=== PATIENT | female | born 1980 | race Caucasian/White ===

== ENCOUNTER 2016-04-25 20:11 | Emergency (ER) | payer OTHER ==
[2016-04-25 20:25] VITALS: BP 126/80
[2016-04-25] MEDS ORDERED: Ketorolac INJ* 60 MG/2 ML VIAL IM ONE (20:45)
[2016-04-25] MEDS ORDERED: Ciproflox/Dexameth OTIC.SUSP* 7.5 ML BTL LEFT EAR ONE (20:45)
--- NOTE | 2016-04-25 22:02 | ED ---
Stephanie Rodríguez Claudia, scribed for Milan Sparks MD on 04/25/16 at 2042 . Throat Pain/Nasal Congestion - HPI Summary HPI Summary: 36 year old female presents to the ED with left ear pain. Pt notes throbbing/ dull ache sudden onset .Pt denies any sore throat, fever or chills, or nasal congestion. She notes that she was seen at [facility] but has not been able to find relief and the pain persists. - History of Current Complaint Chief Complaint: EDEarPain Time Seen by Provider: 04/25/16 20:31 Hx Obtained From: Patient Onset/Duration: Sudden Onset - 04/23/16, Still Present - Allergies/Home Medications Allergies/Adverse Reactions: Allergies Allergy/AdvReac Type Severity Reaction Status Date / Time Cephalexin [From Keflex] Allergy Severe seizure Verified 02/20/12 08:58 Codeine Allergy Mild Rash Verified 02/20/12 08:53 PMH/Surg Hx/FS Hx/Imm Hx Previously Healthy: Yes Endocrine/Hematology History: Denies: Hx Diabetes Psychiatric History: Reports: Hx Anxiety Infectious Disease History: No Infectious Disease History: Reports: Hx Shingles - RESOLVED 2 WKS AGO Denies: Traveled Outside the [place] in Last 30 Days - Family History Family History: No FHx of Breast Cancer - Social History Occupation: Employed Full-time Lives: Alone Alcohol Use: Rare Substance Use Type: Reports: None Hx Tobacco Use: No Review of Systems Negative: Fever, Chills Eyes: Negative Positive: Ear Ache. Negative: Sore Throat, Nasal Discharge Cardiovascular: Negative Respiratory: Negative Gastrointestinal: Negative Genitourinary: Negative Musculoskeletal: Negative Skin: Negative Neurological: Negative Psychological: Normal All Other Systems Reviewed And Are Negative: Yes Physical Exam - Summary Physical Exam Summary: Vital signs: Reviewed Gen.: Patient is a well-developed and nourished male in no acute distress. Patient is lying comfortably on the stretcher. Head: Normacephalic and atraumatic Eyes: PERRLA, EOMI x2. Ears: Right ear canal and TM WNL. and Left positive erythema in the ear canal Nose and mouth: Neck: Supple, no lymphadenopathy, no JVD Lungs: CTA B/L CVS: S1 & S2 present. No murmurs appreciated. Triage Information Reviewed: Yes Vital Signs On Initial Exam: Initial Vitals Temp Pulse Resp BP Pulse Ox 98.8 F 67 16 126/80 100 04/25/16 20:22 04/25/16 20:22 04/25/16 20:22 04/25/16 20:22 04/25/16 20:22 Vital Signs Reviewed: Yes Diagnostics - Vital Signs Vital Signs Temp Pulse Resp BP Pulse Ox 04/25/16 20:22 98.8 F 67 16 126/80 100 - Laboratory Lab Statement: Any lab studies that have been ordered have been reviewed, and results considered in the medical decision making process. EENT Course/Dx - Course Assessment/Plan: 36 year old with c/c of left ear pain. Pt has been having pain for last few days. PE displays otitis externa. Pt was given ciproflox and ketorolac for pain. Pt will be d/c home and follow-up with PCP. I discussed all my findings and test results with the patient. Patient understands and agrees. Patient was instructed to return to the emergency room immediately if any of the symptoms return or worsens. Patient understands and agrees. Plan of care was discussed with the patient and patient understands and agrees with the plan of care. All questions were answered at patient satisfaction. There were no further complaints or concerns. Patient was instructed to follow up with primary care physician within 3 to 5 days. Patient is hemodynamically stable. Patient is alert and oriented x 3. No acute neurological deficits. - Diagnoses Provider Diagnoses: Otitis externa Discharge - Discharge Plan Condition: Stable Disposition: HOME Patient Education Materials: Otitis Externa (ED) Referrals: Mirna Hoffman [employer] [Primary Care Provider] - 2 Days (Please follow-up ) The documentation as recorded by the Stephanie abad Claudia accurately reflects the service I personally performed and the decisions made by me, Milan Sparks MD.
== END 2016-04-25 21:23 | disposition home or self-care (01) ==
LOC: ED 20:11
DX: H60.92 Unspecified otitis externa, left ear (principal); Z88.5 Allergy status to narcotic agent
CPT/HCPCS: 99282; A9270-GY; J1885

== ENCOUNTER 2016-04-26 14:27 | Emergency (ER) | payer OTHER ==
[2016-04-26 14:45] VITALS: BP 121/81
--- NOTE | 2016-04-26 15:30 | ED ---
Throat Pain/Nasal Congestion - History of Current Complaint Chief Complaint: EDEarPain Time Seen by Provider: 04/26/16 15:06 Hx Obtained From: Patient Onset/Duration: Gradual Onset - has had L ear pain over past week, was seen at [facility] and given no meds (not OM) was seen here yesterday and dx with OE- started ear gtts but pain is no better. remembers having L sided nasal leigh last week, but doesn't "really feel sick" Severity: Moderate - Allergies/Home Medications Allergies/Adverse Reactions: Allergies Allergy/AdvReac Type Severity Reaction Status Date / Time Cephalexin [From Keflex] Allergy Severe seizure Verified 04/26/16 14:45 Codeine Allergy Mild Rash Verified 04/26/16 14:45 PMH/Surg Hx/FS Hx/Imm Hx Previously Healthy: Yes Endocrine/Hematology History: Denies: Hx Diabetes Cardiovascular History: Denies: Hx Hypertension Respiratory History: Denies: Hx Asthma Sensory History: Denies: Hx Hearing Problem Neurological History: Denies: Hx Migraine Psychiatric History: Reports: Hx Anxiety Infectious Disease History: No Infectious Disease History: Reports: Hx Shingles - RESOLVED 2 WKS AGO Denies: Traveled Outside the [place] in Last 30 Days - Family History Known Family History: Positive: None Family History: No FHx of Breast Cancer - Social History Occupation: Employed Full-time - assistant secretary Lives: With Family Alcohol Use: Rare Substance Use Type: Reports: None Hx Tobacco Use: No Smoking Status (MU): Unknown if Ever Smoked Review of Systems Constitutional: Negative Negative: Fever, Chills Eyes: Negative Positive: Ear Ache. Negative: Sore Throat Cardiovascular: Negative Respiratory: Negative Gastrointestinal: Negative Skin: Negative Neurological: Negative Psychological: Normal All Other Systems Reviewed And Are Negative: Yes Physical Exam Triage Information Reviewed: Yes Vital Signs On Initial Exam: Initial Vitals Temp Pulse Resp BP Pulse Ox 98.1 F 62 16 121/81 100 04/26/16 14:30 04/26/16 14:30 04/26/16 14:30 04/26/16 14:30 04/26/16 14:30 Vital Signs Reviewed: Yes Appearance: Positive: Well-Appearing, No Pain Distress, Well-Nourished Skin: Positive: Warm, Skin Color Reflects Adequate Perfusion, Dry Head/Face: Positive: Normal Head/Face Inspection Eyes: Positive: Normal ENT: Positive: Normal ENT inspection, TM dull, Other - thick yellow drainage L OP no mastoid pain on palp/percussion, no facial swelling or redness. ear canals free from discharge/swelling/redness no LAD, pain with Palp L eustachian area inferior to L ear.. Negative: Nasal drainage, TM bulging, TM red Neck: Positive: Supple, Nontender, No Lymphadenopathy Respiratory/Lung Sounds: Positive: Clear to Auscultation Cardiovascular: Positive: Normal Neurological: Positive: Normal, Alert, Oriented to Person Place, Time Psychiatric: Positive: Normal Diagnostics - Vital Signs Vital Signs Temp Pulse Resp BP Pulse Ox 04/26/16 14:30 98.1 F 62 16 121/81 100 - Laboratory Lab Statement: Any lab studies that have been ordered have been reviewed, and results considered in the medical decision making process. EENT Course/Dx - Course Course Of Treatment: iStop Reference #: [id number] - Differential Diagnoses Differential Diagnoses: Cerumen Impaction, Foreign Body, Otitis Externa, Otitis Media, Sinusitis, TMJ Syndrome, URI/Bronchitis - Diagnoses Provider Diagnoses: Sinusitis, Eustachian tube dysfunction Discharge - Discharge Plan Condition: Stable Disposition: HOME Prescriptions: Azithromycin TAB* [Zithromax TAB (Z-TOMAS)*] 0 mg PO .Z-TOMAS INSTRUCTIONS #6 tab Patient Education Materials: Sinusitis (ED), Eustachian Tube Dysfunction (GEN) Referrals: Mirna Hoffman [employer] COORDINATOR [Primary Care Provider] - 2 Days (recheck) Additional Instructions: take antibiotic as directed stop ear drops use sudafed (from behind the counter) as directed return if problems worsen
[2016-04-26] MEDS ORDERED: Ketorolac INJ* 60 MG/2 ML VIAL IM ONE (15:45)
== END 2016-04-26 16:11 | disposition home or self-care (01) ==
LOC: ED 14:27
DX: H69.90 Unspecified Eustachian tube disorder, unspecified ear (principal); J32.9 Chronic sinusitis, unspecified; H92.02 Otalgia, left ear
CPT/HCPCS: 96372; 99282; J1885

== ENCOUNTER 2016-04-29 10:37 | Emergency (ER) | payer OTHER ==
[2016-04-29 11:12] VITALS: BP 117/80
--- NOTE | 2016-05-05 10:44 | ED ---
Throat Pain/Nasal Congestion - HPI Summary HPI Summary: Pt here w/ persistent Lt side otalgia and face pain. This started last week and she was seen here in ED. Dx'd as OE and provided with cipro otic drops. Pt has no relief with this so returned and was told had a sinus infection - started on Zpak w/o relief. Was seen at [address] [place] [address] as well and given toradol IM w/ some relief but only briefly. Her PCP rx'd oral toradol a few days later w/o relief. She has a h/o TMJ and so was also provided w/ flexeril w/o relief - makes her sleepy and does not want anymore of this as she has small children at home and worries she will sleep through their needs. She describes her pain as an intermittent, sharp 9/10 pain that is exacerbated and alleviated by nothing. She also states the side of her face becomes painful w/ cold air exposure. H/o shingles and the sensation is somewhat similar - burning, nerve pain. Denies fever, chills, rhinorrhea, otorrhea, eye irritation or visual change, ST, neck pain, sinus pain/pressure, dental pain. She has not had any trauma here. Does report 2 new spots on her Lt cheek which she thought were pimples - has tried to rupture them w/o much success - now they are red and irritated - not sure if they were blistered initially? No other areas of skin abnormalities along this side of face/scalp. Pt was sent here today by PCP as she reported having Lt sided facial numbness and worsening of pain. Denies drooling, trouble swallowing , facial asymmetry, weakness, slurred speech, dizziness, tinnitus, nausea, vomiting. Pt has not had imaging and PCP's is concerned something more serious could be at hand. States she planned to order an MRI until pt reported facial numbness - hence referral here today. - History of Current Complaint Chief Complaint: EDGeneral Time Seen by Provider: 04/29/16 15:00 Hx Obtained From: Patient, Family/Assistant Scientist - PCP - Allergies/Home Medications Allergies/Adverse Reactions: Allergies Allergy/AdvReac Type Severity Reaction Status Date / Time Cephalexin [From Keflex] Allergy Severe seizure Verified 05/04/16 15:05 Codeine Allergy Mild Rash Verified 05/04/16 15:05 PMH/Surg Hx/FS Hx/Imm Hx Previously Healthy: Yes - prior to ear/face sx, yes Endocrine/Hematology History: Denies: Hx Anticoagulant Therapy, Hx Blood Disorders, Hx Diabetes, Hx Thyroid Disease, Hx Anemia, Autoimmune Disease Cardiovascular History: Denies: Hx Hypertension Respiratory History: Denies: Hx Asthma Musculoskeletal History: Reports: Other Musculoskeletal History - TMJ Sensory History: Denies: Hx Hearing Problem Neurological History: Denies: Hx CVA, Hx Headaches, Hx Migraine, Hx Spinal Cord Injury Psychiatric History: Reports: Hx Anxiety Infectious Disease History: No Infectious Disease History: Reports: Hx Shingles - Rib area Denies: Traveled Outside the [place] in Last 30 Days - Family History Known Family History: Positive: None - Social History Lives: With Family Alcohol Use: Rare Hx Substance Use: No Substance Use Type: Reports: None Hx Tobacco Use: No Smoking Status (MU): Unknown if Ever Smoked Review of Systems Negative: Fever, Chills, Fatigue Negative: Photophobia, Blurred Vision, Diplopia, Drainage, Erythema Positive: Ear Ache - see HPI. Negative: Epistaxis, Dental Pain, Sore Throat, Nasal Discharge Negative: Palpitations, Chest Pain Negative: Shortness Of Breath, Cough Negative: Abdominal Pain, Vomiting, Diarrhea, Nausea Positive: no symptoms reported Negative: Arthralgia, Myalgia, Decreased ROM, Edema Skin: Other - see HPI Neurological: Other - see HPI Negative: Headache Psychological: Normal - concerned All Other Systems Reviewed And Are Negative: Yes Physical Exam Triage Information Reviewed: Yes Vital Signs On Initial Exam: Initial Vitals Temp Pulse Resp BP Pulse Ox 99.2 F 74 15 117/80 100 04/29/16 11:02 04/29/16 11:02 04/29/16 11:02 04/29/16 11:02 04/29/16 11:02 Vital Signs Reviewed: Yes Appearance: Positive: Well-Appearing, No Pain Distress, Well-Nourished Skin: Positive: Warm, Dry - 2 small erythematous papules over Lt cheek - no pustule, no vesicle, no drainage; no other areas of skin abnormalities along this dermatome however scalp is somewhat tender here, especially with moving hair Head/Face: Positive: Other - see above Eyes: Positive: Normal, EOMI, JR, Conjunctiva Clear. Negative: Conjunctiva Inflammed, Discharge ENT: Positive: Normal ENT inspection, Hearing grossly normal, Pharynx normal - no lesions, Pharyngeal erythema, TMs normal - no lesions, no d/c. Negative: Nasal congestion, Nasal drainage - no lesions, TM bulging, TM dull, TM red, Tonsillar swelling, Tonsillar exudate, Trismus Dental: Negative: Percussion Tenderness @, Gross Decay/Caries @, Dental Fracture @ Neck: Positive: Supple, Nontender, No Lymphadenopathy Respiratory/Lung Sounds: Positive: Clear to Auscultation, Breath Sounds Present. Negative: Rales, Rhonchi, Stridor, Wheezes Cardiovascular: Positive: Normal, RRR, Pulses are Symmetrical in both Upper and Lower Extremities, S1, S2. Negative: Murmur, Rub, Leg Edema Left, Leg Edema Right Abdomen Description: Positive: Nontender, Soft Bowel Sounds: Positive: Present Musculoskeletal: Positive: Normal, Strength/ROM Intact - NOTE: jaw depression and elevation w/o pain/difficulty - tracking well; masseter, temporalis and buccinator mm are NTTP Neurological: Positive: Normal, Sensory/Motor Intact, Alert, Oriented to Person Place, Time, CN Intact II-III Psychiatric: Positive: Normal - calm, collected and presents HPI concisely - mild anxiety from concern of no relief and no dx as of yet - Gavin Coma Scale Coma Scale Total: 15 Diagnostics - Vital Signs Vital Signs Temp Pulse Resp BP Pulse Ox 04/29/16 11:02 99.2 F 74 15 117/80 100 - Laboratory Lab Statement: Any lab studies that have been ordered have been reviewed, and results considered in the medical decision making process. EENT Course/Dx - Course Course Of Treatment: After speaking with pt, pt's PCP (Cortes) and radiologist ( Jessica), it is felt that the imaging of choice here will be an MRI. Pt does not appear to have life threatening pathology today (ie. CVA, etc), so will be d /c'd w/ a tentative dx of HZV and medications to tx this as she has some sx of HZV (ie. lesions along cheek, nerve pain along face and scalp, relief w/ NSAID and h/o HZV). However she will have close f/u w/ her PCP this week and an MRI to further asses for intracranial pathology. Another dx in the differential is trigeminal neuralgia. Pt agrees w/ plan and will return if danger s/sx present. - Diagnoses Provider Diagnoses: Neuralgic facial pain - Provider Notifications Discussed Care of Patient with: Karnow. Lopez Discharge - Discharge Plan Condition: Stable Disposition: HOME Prescriptions: Gabapentin CAP(*) [Neurontin 300 CAP(*)] 300 mg PO TID #30 cap ValACYclovir (*) [Valtrex 1 GM(*)] 1 gm PO TID #21 tab predniSONE TAB* [Deltasone TAB*] 20 mg PO TID #15 tab Patient Education Materials: Shingles (ED), Trigeminal Neuralgia (ED), Paresthesia (ED) Referrals: Ivy Kolb DO [Doctor of Osteopathy] - Additional Instructions: The specific cause of your facial pain has not been identified today however there is high clinical suspicion that you may have shingles or possibly trigeminal neuralgia. Medications have been sent to your pharmacy to provide relief until you can have an MRI through your PCP's office. Your PCP, Dr. Kolb , is aware and agrees with plan. Her office will call you with details about imaging. A steroid medication was started today - if this provides relief, a longer course should be implemented through your PCP's office - follow-up before you finish medication in the event more medication needs to be ordered. If this does not provide relief, it may not be necessary to continue. 5 days is maximum to take this medication without needing a taper down dose. If this regimen does not work, other options are available. Follow-up with your PCP. *If you develop ocular pain, weakness/paralysis of face, fever, chills, chest pain, shortness of breath, numbness/tingling/weakness in extremities or severe headache, return to ED Addendum entered and electronically signed by Jossie Scanlon PA 05/05/16 11:21: Physical Exam Triage Information Reviewed: Yes Vital Signs On Initial Exam: Initial Vitals Temp Pulse Resp BP Pulse Ox 99.2 F 74 15 117/80 100 04/29/16 11:02 04/29/16 11:02 04/29/16 11:02 04/29/16 11:02 04/29/16 11:02 Vital Signs Reviewed: Yes Appearance: Positive: Well-Appearing, No Pain Distress, Well-Nourished Skin: Positive: Warm, Dry - 2 small erythematous papules over Lt cheek - no pustule, no vesicle, no drainage; no other areas of skin abnormalities along this dermatome however scalp is somewhat tender here, especially with moving hair Head/Face: Positive: Other - sinuses, mastoid p and parotd gland NTTP - see above for more details. Negative: TMJ Tenderness Eyes: Positive: Normal, EOMI, JR, Conjunctiva Clear. Negative: Conjunctiva Inflammed, Discharge ENT: Positive: Normal ENT inspection, Hearing grossly normal, Pharynx normal - no lesions, mucosa moist, Pharyngeal erythema, TMs normal - no lesions, no d/c. Negative: Nasal congestion, Nasal drainage - no lesions, TM bulging, TM dull, TM red, Tonsillar swelling, Tonsillar exudate, Trismus Dental: Negative: Percussion Tenderness @, Gross Decay/Caries @, Dental Fracture @ Neck: Positive: Supple, Nontender, No Lymphadenopathy Respiratory/Lung Sounds: Positive: Clear to Auscultation, Breath Sounds Present. Negative: Rales, Rhonchi, Stridor, Wheezes Cardiovascular: Positive: Normal, RRR, Pulses are Symmetrical in both Upper and Lower Extremities, S1, S2. Negative: Murmur, Rub, Leg Edema Left, Leg Edema Right Abdomen Description: Positive: Nontender, Soft Bowel Sounds: Positive: Present Musculoskeletal: Positive: Normal, Strength/ROM Intact - NOTE: jaw depression and elevation w/o pain/difficulty - tracking well; masseter, temporalis and buccinator mm are NTTP Neurological: Positive: Normal, Sensory/Motor Intact, Alert, Oriented to Person Place, Time, CN Intact II-III Psychiatric: Positive: Normal - calm, collected and presents HPI concisely - mild anxiety from concern of no relief and no dx as of yet - Gavin Coma Scale Coma Scale Total: 15
== END 2016-04-29 16:03 | disposition home or self-care (01) ==
LOC: ED 10:37
DX: M79.2 Neuralgia and neuritis, unspecified (principal); Z86.19 Personal history of other infectious and parasitic diseases; R51 Headache; H92.09 Otalgia, unspecified ear; R20.9 Unspecified disturbances of skin sensation
CPT/HCPCS: 99283

== ENCOUNTER 2017-03-15 09:03 | Emergency (ER) | payer BC, OTHER ==
[2017-03-15] MEDS ORDERED: methylPREDNISolone 125 MG* 2 ML VIAL IV ONE (09:44)
[2017-03-15] MEDS ORDERED: NS 0.9% 1000 ML* 1,000 ML IV ONE ×2 (09:44→09:48)
[2017-03-15] MEDS ORDERED: Clindamycin 300 MG IVPREMIX(* 300 MG in PREMIX* 1 ML IV ONE (09:44)
[2017-03-15] MEDS ORDERED: Ondansetron INJ* 2 MG/ML VIAL IV ONE (09:44)
[2017-03-15] MEDS ORDERED: Ketorolac INJ* 30 MG/ML 1 ML VIAL IV PUSH ONE (09:46)
[2017-03-15] MEDS ORDERED: PREMIX* 0 ML ONE (10:01)
[2017-03-15 10:08] LABS: Hematocrit 39 % (35-47); Hemoglobin 13.4 g/dl (12.0-16.0); Mean Corpuscular HGB Conc 34 g/dl (31-36); Mean Corpuscular Hemoglobin 30 pg (27-31); Mean Corpuscular Volume 88 fL (80-97); Mean Platelet Volume 9 um3 (7.4-10.4); Red Blood Count 4.43 10^6/ul (4.0-5.4); Red Cell Distribution Width 13 % (10.5-15); White Blood Count 10.3 10^3/ul (3.5-10.8)
--- NOTE | 2017-03-15 10:26 | ED ---
Throat Pain/Nasal Congestion - HPI Summary HPI Summary: Patient is a 37yo otherwise heathy F who presents to the ED with difficulty swallowing, anterior neck pain, pain with swallowing, change of voice, feeling of tightness/swelling in the throat and fever highest at 102 x 4 days. She was seen at [facility] twice and was given amoxicillin on the 2nd visit. Strep negative, mono negative. She arrives today with worsening odynophagia and dysphagia and continues to have a temperature despite OTC medications. Denies myalgias. Denies V/C/D although notes to some nausea. Denies ear pain, posterior neck pain or stiffness, photophobia. She notes to a 2/10 MACE this morning which has now improved. + weakness and fatigue. Denies sick contacts or travel. Denies history of strep or mono. Denies flu shot. No drooling, wheezing or hoarseness, but slightly muffled voice. - History of Current Complaint Chief Complaint: EDFever Time Seen by Provider: 03/15/17 09:20 Hx Obtained From: Patient Onset/Duration: Sudden Onset Severity: Severe Associated Signs And Symptoms: Positive: Dysphagia, FB Sensation - Allergies/Home Medications Allergies/Adverse Reactions: Allergies Allergy/AdvReac Type Severity Reaction Status Date / Time Cephalexin [From Keflex] Allergy Severe seizure Verified 05/06/16 15:23 Codeine Allergy Mild Rash Verified 05/06/16 15:23 PMH/Surg Hx/FS Hx/Imm Hx Previously Healthy: Yes Endocrine/Hematology History: Denies: Hx Anticoagulant Therapy, Hx Blood Disorders, Hx Diabetes, Hx Thyroid Disease, Hx Anemia Cardiovascular History: Denies: Hx Hypertension, Hx Pacemaker/ICD Respiratory History: Denies: Hx Asthma History: Denies: Hx Renal Disease Musculoskeletal History: Reports: Other Musculoskeletal History - TMJ Sensory History: Denies: Hx Hearing Aid, Hx Hearing Problem Neurological History: Denies: Hx CVA, Hx Headaches, Hx Migraine, Hx Spinal Cord Injury Psychiatric History: Reports: Hx Anxiety Denies: Hx Panic Disorder - Surgical History Surgery Procedure, Year, and Place: D & C - Immunization History Hx Pertussis Vaccination: No Immunizations Up to Date: Unable to Obtain/Confirm Infectious Disease History: No Infectious Disease History: Reports: Hx Shingles - Rib area Denies: Traveled Outside the [place] in Last 30 Days - Family History Known Family History: Positive: None Family History: No FHx of Breast Cancer - Social History Occupation: Employed Full-time Lives: With Family Alcohol Use: Rare Hx Substance Use: No Substance Use Type: Reports: None Hx Tobacco Use: No Smoking Status (MU): Unknown if Ever Smoked Review of Systems Positive: Fever, Chills, Skin Diaphoresis Eyes: Negative Negative: Blurred Vision, Diplopia, Drainage Positive: Sore Throat. Negative: Epistaxis, Dental Pain, Ear Ache, Nasal Discharge Negative: Palpitations, Chest Pain Negative: Shortness Of Breath, Cough Positive: Nausea. Negative: Vomiting, Diarrhea Genitourinary: Negative Positive: no symptoms reported, see HPI Musculoskeletal: Negative Neurological: Negative All Other Systems Reviewed And Are Negative: Yes Physical Exam Triage Information Reviewed: Yes Vital Signs On Initial Exam: Initial Vitals Temp Pulse Resp BP Pulse Ox 101.9 F 130 20 117/68 98 03/15/17 09:17 03/15/17 09:17 03/15/17 09:17 03/15/17 09:17 03/15/17 09:17 Vital Signs Reviewed: Yes Appearance: Positive: Well-Appearing, Well-Nourished Skin: Positive: Warm, Skin Color Reflects Adequate Perfusion Head/Face: Positive: Normal Head/Face Inspection Eyes: Positive: EOMI, JR, Conjunctiva Clear ENT: Positive: Pharyngeal erythema, Tonsillar swelling, Tonsillar exudate, Hoarse voice, Uvula midline, Other - muffled voice Neck: Positive: Tenderness @ - cervical and anterior LN, Enlarged Nodes @ - Left anterior Respiratory/Lung Sounds: Positive: Breath Sounds Present Cardiovascular: Positive: RRR, Pulses are Symmetrical in both Upper and Lower Extremities. Negative: Leg Edema Left, Leg Edema Right Musculoskeletal: Positive: Normal, Strength/ROM Intact Neurological: Positive: Sensory/Motor Intact, Alert, Oriented to Person Place, Time, Speech Normal Psychiatric: Positive: Normal Diagnostics - Vital Signs Vital Signs Temp Pulse Resp BP Pulse Ox 03/15/17 09:17 101.9 F 130 20 117/68 98 - Laboratory Lab Results: Lab Results 03/15/17 Range/Units 09:55 WBC 10.3 (3.5-10.8) 10^3/ul RBC 4.43 (4.0-5.4) 10^6/ul Hgb 13.4 (12.0-16.0) g/dl Hct 39 (35-47) % MCV 88 (80-97) fL MCH 30 (27-31) pg MCHC 34 (31-36) g/dl RDW 13 (10.5-15) % Plt Count 179 (150-450) 10^3/ul MPV 9 (7.4-10.4) um3 Neut % (Auto) 84.4 H (38-83) % Lymph % (Auto) 4.7 L (25-47) % [place] % (Auto) 10.5 H (1-9) % Eos % (Auto) 0 (0-6) % Baso % (Auto) 0.4 (0-2) % Absolute Neuts (auto) 8.7 H (1.5-7.7) 10^3/ul Absolute Lymphs (auto) 0.5 L (1.0-4.8) 10^3/ul Absolute Monos (auto) 1.1 H (0-0.8) 10^3/ul Absolute Eos (auto) 0 (0-0.6) 10^3/ul Absolute Basos (auto) 0 (0-0.2) 10^3/ul Absolute Nucleated RBC 0.01 10^3/ul Nucleated RBC % 0.1 Monoscreen Pending Result Diagrams: 03/15/17 09:55 03/15/17 09:55 Lab Statement: Any lab studies that have been ordered have been reviewed, and results considered in the medical decision making process. EENT Course/Dx - Course Course Of Treatment: During the course of treatment, patient is given 2L fluids , zofran, clindamycin IV and solumedrol. Tylenol 650mg. CT neck : IMPRESSION: 1. Thickened oropharyngeal and nasopharyngeal mucosal space without evidence for a soft. tissue plane abscess collection or abnormal soft tissue gas. 2. Bilateral level 2 lymphadenopathy. Tonsillitis without strep or mono. Labs WNL. She is given 7 days clindamycin; prednisone 40mg; and tramadol for pain. EENT follow up. - Differential Diagnoses Differential Diagnoses: Peritonsillar Ulcer, Pharyngitis - Diagnoses Provider Diagnoses: Tonsillitis Discharge - Discharge Plan Condition: Stable Disposition: HOME Prescriptions: Clindamycin Cap(NF) [Clindamycin Cap 300 mg Cap(NF)] 300 mg PO Q6H #28 cap predniSONE TAB* [Deltasone TAB*] 40 mg PO DAILY #10 tab MDD 2 traMADol TAB* [Ultram*] 50 mg PO Q12H PRN #6 tab MDD 2 PRN Reason: Pain Patient Education Materials: Tonsillitis (ED) Forms: *Work Release Referrals: Mirna Hoffman NP [Primary Care Provider] - Frederick Nix MD [Medical Doctor] - Additional Instructions: I believe you have a bacterial tonsillitis Please take prednisone 40mg daily IN THE MORNING for 5 days Clindamycin 4 times daily for 7 days (next dose is at 5pm this evening) Tylenol 650mg and ibuprofen 600mg intermittently throughout the day ( approximately every 4 hours you should be taking either one) Take on opposite schedule of the other Tramadol twice daily only as needed for pain Out of work x 2 days I have given you a referral for EENT if any symptoms continue or worsen If you develop difficulty swallowing or breathing, return to ED immediately
[2017-03-15 10:29] LABS: BUN/Creatinine Ratio 12.6 (8-20); C Reactive Protein 170.48 mg/L (< 5.00); Calcium 9.1 mg/dL (8.6-10.3); EGFR African American 94.7 (>60); EGFR Non-African American 73.7 (>60); Globulin 3.3 g/dL (2-4); Potassium 3.3 mmol/L (3.5-5.0); Total Bilirubin 0.7 mg/dL (0.2-1.0); Total Protein 7.3 g/dL (6.4-8.9)
[2017-03-15 10:32] LABS: Manual Entry Verification JEA0012; Mono Internal Control QC Line Present
[2017-03-15] MEDS ORDERED: Iohexol 300* (CONTRAST) 10 ML SDV IV ONE (10:59)
--- NOTE | 2017-03-15 11:42 | RAD ---
INDICATION: Sore and swollen throat, decreased appetite, bodyaches. Unable to swallow or eat. Fever since . On amoxicillin. Question retropharyngeal versus peritonsillar abscess. COMPARISON: No relevant prior exams available on the [facility] for comparison. TECHNIQUE: Multidetector CT images skull base to lung apices with 50 mL Omnipaque 300 IV contrast. Multiplanar reformation. REPORT: Mild to moderately thickened oropharyngeal and RIGHT greater than LEFT nasopharyngeal mucosa. No soft tissue abscess collection evident. No abnormal soft tissue gas evident. Symmetric unremarkable parapharyngeal fat. Unremarkable submandibular and parotid glands. 1.0 cm and 1.2 cm short axis RIGHT level 2, and 1.5 cm short axis LEFT level 2 enlarged lymph nodes. Unremarkable thyroid gland. Unremarkable orbital contents. Patent bilateral internal jugular veins. Unremarkable epiglottis, vallecula and piriform recesses, larynx, and visualized subglottic trachea. No inflammatory change evident at the visualized lung apices. Grossly clear paranasal sinuses and mastoid air spaces. No suspicious osseous lesions evident. IMPRESSION: 1. Thickened oropharyngeal and nasopharyngeal mucosal space without evidence for a soft tissue plane abscess collection or abnormal soft tissue gas. 2. Bilateral level 2 lymphadenopathy.
[2017-03-15 13:26] LABS: Urine Bacteria Absent (Absent); Urine Bilirubin Negative (Negative); Urine Glucose Negative (Negative); Urine Nitrite Negative (Negative)
[2017-03-15 14:42] VITALS: BP 98/60
== END 2017-03-15 14:48 | disposition home or self-care (01) ==
LOC: ED 09:03
DX: J03.90 Acute tonsillitis, unspecified (principal)
CPT/HCPCS: 36415; 70491; 80053; 81003; 81015; 83605; 85025; 86140; 86308; 87040; 87070; 87502; 87651; 96360; 96374; J1885; J2405; J2930; Q9967

== ENCOUNTER 2017-03-17 13:05 | Observation (INO) | payer BC ==
[2017-03-17] MEDS ORDERED: NS 0.9% 1000 ML* 1,000 ML IV ONE (13:52)
[2017-03-17] MEDS ORDERED: methylPREDNISolone 125 MG* 2 ML VIAL IV ONE (14:06)
[2017-03-17 14:21] LABS: Hematocrit 36 % (35-47); Hemoglobin 12.2 g/dl (12.0-16.0); Mean Corpuscular HGB Conc 34 g/dl (31-36); Mean Corpuscular Hemoglobin 30 pg (27-31); Mean Corpuscular Volume 89 fL (80-97); Mean Platelet Volume 8 um3 (7.4-10.4); Red Blood Count 4.02 10^6/ul (4.0-5.4); Red Cell Distribution Width 13 % (10.5-15); White Blood Count 7.4 10^3/ul (3.5-10.8)
[2017-03-17] MEDS ORDERED: Morphine INJ* 4 MG/ML 1 ML CARPUJECT IV ONE (14:21)
[2017-03-17 14:37] LABS: Albumin 3.7 g/dL (3.2-5.2); BUN/Creatinine Ratio 19.7 (8-20); C Reactive Protein 67.79 mg/L (< 5.00); EGFR African American 119.8 (>60); EGFR Non-African American 93.1 (>60); Globulin 3.1 g/dL (2-4); Potassium 3.6 mmol/L (3.5-5.0); Total Bilirubin 0.3 mg/dL (0.2-1.0); Total Protein 6.8 g/dL (6.4-8.9)
[2017-03-17 14:39] LABS: Mono Internal Control QC Line Present
--- NOTE | 2017-03-17 15:45 | ED ---
Throat Pain/Nasal Congestion - HPI Summary HPI Summary: Patient presents to the ED from PCP with difficulty swallowing her secretions. She was here 2 days ago and note is below: Patient is a 37yo otherwise heathy F who presents to the ED with difficulty swallowing, anterior neck pain, pain with swallowing, change of voice, feeling of tightness/swelling in the throat and fever highest at 102 x 4 days. She was seen at [facility] twice and was given amoxicillin on the 2nd visit. Strep negative, mono negative. She arrives today with worsening odynophagia and dysphagia and continues to have a temperature despite OTC medications. Denies myalgias. Denies V/C/D although notes to some nausea. Denies ear pain, posterior neck pain or stiffness, photophobia. She notes to a 2/10 MACE this morning which has now improved. + weakness and fatigue. Denies sick contacts or travel. Denies history of strep or mono. Denies flu shot. No drooling, wheezing or hoarseness, but slightly muffled voice. She continues to have difficulty swallowing and pain with swallowing. She was given clindamycin and steroids which has not improved her symptoms x 2 days. Denies fever x 2 days since taking the antibiotic. Still having sweats and chills. PCP called Dr. Nix who suggested she come to the ED for a direct admit. Taking no other medication, allergy to keflex and codeine. Morphine given previously with no reaction. - History of Current Complaint Chief Complaint: EDThroatPain Time Seen by Provider: 03/17/17 13:36 Hx Obtained From: Patient, Family/Conductor/Engineer Onset/Duration: Sudden Onset, Lasting Days, Still Present Severity: Worse Since: - today Associated Signs And Symptoms: Positive: Drooling, Hoarseness - Epiglottits Risk Factors Epiglottis Risk Factors: Muffled Voice - Allergies/Home Medications Allergies/Adverse Reactions: Allergies Allergy/AdvReac Type Severity Reaction Status Date / Time Cephalexin [From Keflex] Allergy Severe seizure Verified 05/06/16 15:23 Codeine Allergy Mild Rash Verified 05/06/16 15:23 Home Medications: Home Medications Ibuprofen TAB* [Advil TAB*] 600 mg PO Q8H PRN 03/17/17 [History Confirmed ] PMH/Surg Hx/FS Hx/Imm Hx Previously Healthy: Yes Endocrine/Hematology History: Denies: Hx Anticoagulant Therapy, Hx Blood Disorders, Hx Diabetes, Hx Thyroid Disease, Hx Anemia Cardiovascular History: Denies: Hx Hypertension, Hx Pacemaker/ICD Respiratory History: Denies: Hx Asthma History: Denies: Hx Renal Disease Musculoskeletal History: Reports: Other Musculoskeletal History - TMJ Sensory History: Denies: Hx Hearing Aid, Hx Hearing Problem Neurological History: Denies: Hx CVA, Hx Headaches, Hx Migraine, Hx Spinal Cord Injury Psychiatric History: Reports: Hx Anxiety Denies: Hx Panic Disorder - Surgical History Surgery Procedure, Year, and Place: D & C - Immunization History Hx Pertussis Vaccination: No Immunizations Up to Date: Unable to Obtain/Confirm Infectious Disease History: No Infectious Disease History: Reports: Hx Shingles - Rib area Denies: Traveled Outside the [place] in Last 30 Days - Family History Known Family History: Positive: None Family History: No FHx of Breast Cancer - Social History Occupation: Employed Full-time Lives: With Family Alcohol Use: Rare Hx Substance Use: No Substance Use Type: Reports: None Hx Tobacco Use: No Smoking Status (MU): Never Smoked Tobacco Review of Systems Positive: Fatigue Eyes: Negative Positive: Sore Throat, Other - odynophagia/dysphagia/drooling Cardiovascular: Negative Respiratory: Negative Positive: no symptoms reported, see HPI Musculoskeletal: Negative Neurological: Negative All Other Systems Reviewed And Are Negative: Yes Physical Exam Triage Information Reviewed: Yes Vital Signs On Initial Exam: Initial Vitals Temp Pulse Resp BP Pulse Ox 97.9 F 86 18 115/82 99 03/17/17 13:09 03/17/17 13:09 03/17/17 13:09 03/17/17 13:09 03/17/17 13:09 Appearance: Positive: Ill-Appearing Skin: Positive: Skin Color Reflects Adequate Perfusion ENT: Positive: Pharyngeal erythema, Other - pharyngeal monte with exudates bilaterally, enlarged, postpharyngeal edematous - tonsils +3 Neck: Positive: Tenderness @ - anterior/posterior cervical LAD Respiratory/Lung Sounds: Positive: Breath Sounds Present Cardiovascular: Positive: Normal, Pulses are Symmetrical in both Upper and Lower Extremities Musculoskeletal: Positive: Strength/ROM Intact Neurological: Positive: Normal Gait Psychiatric: Positive: Normal, Affect/Mood Appropriate AVPU Assessment: Alert - Gavin Coma Scale Coma Scale Total: 15 Diagnostics - Vital Signs Vital Signs Temp Pulse Resp BP Pulse Ox 03/17/17 15:30 72 97/65 100 03/17/17 15:00 66 112/69 100 03/17/17 14:42 81 113/72 99 03/17/17 14:41 73 99 03/17/17 14:36 20 03/17/17 13:09 97.9 F 86 18 115/82 99 - Laboratory Lab Results: Lab Results 03/17/17 03/17/17 03/17/17 Range/Units 14:10 14:10 14:10 WBC 7.4 (3.5-10.8) 10^3/ul RBC 4.02 (4.0-5.4) 10^6/ul Hgb 12.2 (12.0-16.0) g/dl Hct 36 (35-47) % MCV 89 (80-97) fL MCH 30 (27-31) pg MCHC 34 (31-36) g/dl RDW 13 (10.5-15) % Plt Count 185 (150-450) 10^3/ul MPV 8 (7.4-10.4) um3 Neut % (Auto) 85.8 H (38-83) % Lymph % (Auto) 7.8 L (25-47) % [place] % (Auto) 6.1 (1-9) % Eos % (Auto) 0.1 (0-6) % Baso % (Auto) 0.2 (0-2) % Absolute Neuts (auto) 6.4 (1.5-7.7) 10^3/ul Absolute Lymphs (auto) 0.6 L (1.0-4.8) 10^3/ul Absolute Monos (auto) 0.5 (0-0.8) 10^3/ul Absolute Eos (auto) 0 (0-0.6) 10^3/ul Absolute Basos (auto) 0 (0-0.2) 10^3/ul Absolute Nucleated RBC 0 10^3/ul Nucleated RBC % 0 Sodium 139 (133-145) mmol/L Potassium 3.6 (3.5-5.0) mmol/L Chloride 103 (101-111) mmol/L Carbon Dioxide 29 (22-32) mmol/L Anion Gap 7 (2-11) mmol/L BUN 14 (6-24) mg/dL Creatinine 0.71 (0.51-0.95) mg/dL Est GFR ( Amer) 119.8 (>60) Est GFR (Non-Af Amer) 93.1 (>60) BUN/Creatinine Ratio 19.7 (8-20) Glucose 116 H (70-100) mg/dL Lactic Acid 0.8 (0.5-2.0) mmol/L Calcium 9.0 (8.6-10.3) mg/dL Total Bilirubin 0.30 (0.2-1.0) mg/dL AST 11 L (13-39) U/L ALT 9 (7-52) U/L Alkaline Phosphatase 38 (34-104) U/L C-Reactive Protein 67.79 H (< 5.00) mg/L Total Protein 6.8 (6.4-8.9) g/dL Albumin 3.7 (3.2-5.2) g/dL Globulin 3.1 (2-4) g/dL Albumin/Globulin Ratio 1.2 (1-3) Monoscreen Negative (Negative) Result Diagrams: 03/17/17 14:10 03/17/17 14:10 Lab Statement: Any lab studies that have been ordered have been reviewed, and results considered in the medical decision making process. EENT Course/Dx - Course Course Of Treatment: Patient arrives from PCP with Dr. Nxi consult who states she needs to come to ED for admission d./t inability to swallow her secretions. She continues to have this x 1 week with no improvement, but now worsening. She continues to have difficulty swallowing and pain with swallowing. She was given clindamycin and steroids which has not improved her symptoms x 2 days. Denies fever x 2 days since taking the antibiotic. Still having sweats and chills. PCP called Dr. Nix who suggested she come to the ED for a direct admit. However, hospitalist did not receive admission. Labs obtained, solumedrol given. Morphine 4mg given. Spoke with Dr. Basurto who agrees to admit patient. VS stable. [place] negative - sent EBV. Throat culture pending. pharyngeal monte with exudates bilaterally, enlarged, postpharyngeal edematous - tonsils +3 - Differential Diagnoses Differential Diagnoses: Tonsilitis - Diagnoses Provider Diagnoses: Dysphagia, Inability to swallow - Provider Notifications Discussed Care Of Patient With: Boyd Basurto - Agrees to accept patient Instructed by Provider To: Admit As Inpatient Discharge - Discharge Plan Condition: Stable Disposition: ADMITTED TO [facility] Referrals: Ivy Kolb DO [Primary Care Provider] -
[2017-03-17] MEDS ORDERED: Acetaminophen ADULT LIQ* 650 MG/20.3 ML UDC PO PRN (16:27)
[2017-03-17] MEDS ORDERED: Ondansetron INJ* 2 MG/ML VIAL IV PRN (16:27)
[2017-03-17] MEDS ORDERED: Piperacillin/Tazobac ADVAN(*) 3.375 GM in NS 0.9% 100 ML* 100 ML IVPB ONE (16:27)
[2017-03-17] MEDS ORDERED: Zosyn per Pharmacy* NOTE FOLLOW UP SCH (17:00)
[2017-03-17] MEDS ORDERED: Dexamethasone IV* 4 MG/ML 1 ML (4 MG) IV SLOW PU SCH (17:00)
[2017-03-17] MEDS: NS 0.9% 1000 ML* 1,000 ML IV SCH (18:28)
--- NOTE | 2017-03-17 21:01 | HP ---
CC: Dr. Kolb; Dr. Nix * HISTORY AND PHYSICAL: DATE OF ADMISSION: 03/17/17 PRIMARY CARE PROVIDER: Dr. Kolb. CONSULTING ENT SPECIALIST: Dr. Nix. ATTENDING PHYSICIAN WHILE IN THE HOSPITAL: Boyd Basurto MD * (report being dictated by Jorge Christensen NP). CHIEF COMPLAINT: Sore throat. HISTORY OF PRESENT ILLNESS: Mrs. Romero is a 37-year-old female patient, who on , developed she says like a scratchy throat. The next day she went shopping with her mother she started to having aching and started having fevers and her throat was getting much worse. She actually went home early and on Wednesday, went to [facility], was started on antibiotics, was not getting better throughout the weekend, still spiking fevers, still having throat pain. She felt like her ears were burning. She went to [facility] again on Wednesday, there she was reevaluated and checked for mono, sent home, came back to the ER on Wednesday. She was given IV antibiotics and IV steroids. She felt better until today and last night, she started to spiking fevers again of 102, she was not feeling good. She called her primary and was evaluated there. They sent her into the ER to touch base with Dr. Nix who felt that this patient may need IV therapy. There has been no reports of difficulty with breathing. She states she has not had any trouble swallowing, it just hurts. She denies having any chest pain or shortness of breath. She says she has been having fevers as high as 102, she did have some last night. She denies having any abdominal discomfort or any nausea or vomiting. She says that she denied any recreational drug abuse. She says that she has been in a monogamous relationship. There has been no reports of painful teeth or any sores. She did admit to having one sore in her mouth on Wednesday, but that is now gone. She denies having any drooling and states that she has not been wheezing to her knowledge. She came into the emergency department today, was evaluated, was found to have again what appeared to be tonsillitis. The patient had clearly failed outpatient therapy and we were asked to evaluate for admission. PAST MEDICAL HISTORY: Significant for: 1. Anxiety. 2. Seizure. 3. History of peptic ulcer disease. 4. Trigeminal neuralgia. PAST SURGICAL HISTORY: 1. She has had a D and C. 2. She had an EGD. HOME MEDICATIONS: 1. Ibuprofen 600 mg every 8 hours as needed. 2. Tramadol 50 mg every 12 hours as needed. 3. Prednisone 40 mg daily, she was given a burst for 2 days. 4. She is on clindamycin 300 mg every 6 hours as needed. ALLERGIES TO MEDICATIONS: Includes KEFLEX and CODEINE. FAMILY HISTORY: Mother has high blood pressure. She says her father is alive and well. No reports of cancer, strokes, heart attacks, or diabetes. SOCIAL HISTORY: She does not smoke. Rarely drinks alcohol. Denies any recreational drug abuse. Surrogate decision maker is her ex-. REVIEW OF SYSTEMS: There is a documented fever. She denied any significant weight change. There was no double vision. No ear discharge. No rhinorrhea. There was a sore throat. There was no thyroid enlargement. Denied any chest pain. There was no orthopnea. No nocturnal dyspnea. There was no abdominal pain. o nausea, no vomiting. There has been no dysuria, no frequency. There has been no seizure. There has been no loss of consciousness. No pruritus. No skin ulcerations. Review of 14 systems completed, all others negative. PHYSICAL EXAMINATION GENERAL: At this time, Mrs. Romero is a 37-year-old female patient. She appears to be well nourished, well developed. She does not appear to be in any acute distress. She is sitting in the ER stretcher. VITAL SIGNS: Blood pressure 97/65, pulse 72, respirations 18, O2 sat 100% on room air, temperature 97.9. HEENT: Head: Atraumatic, normocephalic. Eyes: EOMs are intact. Sclerae anicteric and not pale. Her ears, her TMs were palacios. There did not appear to be any erythema. There did appear to have some fluid behind both TMs, but no signs of active infection that I could see, otherwise. NECK: It was tender near the deep cervical chain and in the submandibular space , but there was no swelling noted on the exterior. Looking in her throat, she does have what appears to be tonsillitis. There is tonsillar exudate. There is erythema to both tonsils. They are enlarged at this point. There was no sores noted in the mouth and at this point, she had no stridor. LUNGS: Clear to auscultation bilaterally. No wheezes, rales, or rhonchi. HEART: Sounds S1, S2. Regular rate and rhythm. No murmurs, rubs, or gallops. ABDOMEN: Soft, flat, and nontender. Bowel sounds are present. EXTREMITIES: Pulses were 2+ throughout. She is moving all 4 extremities with 5 /5 strength. NEUROLOGIC: The patient is awake. She is alert. She is oriented x3. Her tongue is midline. Watch Crystal Molder were equal. She had no gross focal deficits. SKIN: Intact. DIAGNOSTIC STUDIES/LAB DATA: WBC 7.4, RBC of 4.02, hemoglobin 12.2, hematocrit 36, platelet count of 185,000. The sodium was 139, potassium 3.6, chloride of 103, bicarb 29, BUN 14, creatinine 0.71, glucose of 116, lactic 0.8 , calcium 9.0, total bili 0.3, AST 11, ALT 9, alk phos 38. CRP was 67. Serology was negative for mono. She had a neck CT done just 2 days ago, which showed thickened oropharyngeal and nasopharyngeal mucosal space without evidence for a soft tissue plane abscess collection or abnormal soft tissue gas, bilateral level 2 lymphadenopathy. Old medical records were reviewed. ASSESSMENT AND PLAN: Mrs. Romero is a 37-year-old female patient coming into the ER today with complaints of sore throat and on evaluation, was found to have what appears to be tonsillitis. We were asked to evaluate for admission. She will be admitted under observation status for: 1. Tonsillitis and pharyngitis: I did touch base with Dr. Nix. The plan at this point, we will give her Decadron 6 mg every 6 hours per his recommendations. We will place her on Zosyn and we will give her normal saline at 150 cc an hour. We will hydrate her aggressively. I have put her on clear liquid diet for now. She does not have a stridor. She does not appear to have respiratory compromise. She is not drooling. We will follow this closely. Should there be any complications or worsening, deterioration of her clinical status, we will get in touch with Dr. Nix and we will follow her closely. 2. History of anxiety: Continue supportive care. 3. Seizure disorder: I will order seizure precautions. 4. History of peptic ulcer disease: She is currently on no medications. Follow with primary. 5. Trigeminal neuralgia: She can follow with her primary. 6. DVT prophylaxis: She is low risk. We are going to put her on SCDs. 7. Code status: Full code. 8. Fluids, electrolytes, and nutrition: She can have clear liquid diet. TIME SPENT: Time spent on this admission was 60 minutes, greater than half of the time was spent [id number] with the patient, obtaining my history and physical, the other half of the time was spent going over the plan of care with the patient and implementing the plan of care. I did discuss plan of care with my attending, Dr. Basurto, he is in agreement. JORGE CHRISTENSEN, SALOMÓN [id number]/CPS #: [id number]
[2017-03-17] MEDS: Piperacillin/Tazobac ADVAN(*) 3.375 GM in D5W 100 ML BAG* 100 ML IVPB SCH (22:29)
[2017-03-18] MEDS: Dexamethasone IV* 4 MG/ML 1 ML (4 MG) IV SLOW PU SCH ×5 (00:31→23:34)
[2017-03-18] MEDS ORDERED: Phenol 1.4% Spray* 177 ML BTL MT PRN (01:47)
[2017-03-18] MEDS: NS 0.9% 1000 ML* 1,000 ML IV SCH (04:42)
[2017-03-18] MEDS: Phenol 1.4% Spray* 177 ML BTL MT PRN ×2 (05:32→18:08)
[2017-03-18] MEDS ORDERED: Acetaminophen TAB* 325 MG PO PRN (05:51)
[2017-03-18] MEDS: Piperacillin/Tazobac ADVAN(*) 3.375 GM in D5W 100 ML BAG* 100 ML IVPB SCH ×3 (07:20→22:43)
[2017-03-18 09:17] LABS: Hematocrit 36 % (35-47); Hemoglobin 12.2 g/dl (12.0-16.0); Mean Corpuscular HGB Conc 34 g/dl (31-36); Mean Corpuscular Hemoglobin 30 pg (27-31); Mean Corpuscular Volume 89 fL (80-97); Mean Platelet Volume 9 um3 (7.4-10.4); Red Blood Count 4.02 10^6/ul (4.0-5.4); Red Cell Distribution Width 13 % (10.5-15); White Blood Count 7.8 10^3/ul (3.5-10.8)
[2017-03-18] MEDS: oxyCODONE/Acetamin 5/325 MG* TAB PO PRN ×3 (09:38→21:42)
[2017-03-18 09:40] LABS: BUN/Creatinine Ratio 11.1 (8-20); Calcium 8.7 mg/dL (8.6-10.3); EGFR African American 117.9 (>60); EGFR Non-African American 91.7 (>60); Potassium 3.6 mmol/L (3.5-5.0)
--- NOTE | 2017-03-18 10:42 | PN ---
Subjective Date of Service: 03/18/17 Interval History: Pain somewhat better. She only tried drinking water so far, and had no problem with that. No GI c/o, no new c/o. No more chills here. Objective Active Medications: Acetaminophen (Tylenol Tab*) 650 mg PO Q4H PRN PRN Reason: PAIN/FEVER Dexamethasone Sodium Phosphate (Decadron Iv*) 6 mg IV SLOW PU Q6HR [facility] Last Admin: 03/18/17 07:12 Dose: 6 mg Sodium Chloride (Ns 0.9% 1000 Ml*) 1,000 mls @ 150 mls/hr IV PER RATE [facility] Stop: 03/18/17 23:09 Last Admin: 03/18/17 04:42 Dose: 150 mls/hr Piperacillin Sod/Tazobactam (Sod 3.375 gm/ Dextrose) 100 mls @ 25 mls/hr IVPB Q8H [facility] Last Admin: 03/18/17 07:20 Dose: 25 mls/hr Ondansetron HCl (Zofran Inj*) 4 mg IV Q6H PRN PRN Reason: NAUSEA Oxycodone/Acetaminophen (Percocet 5/325 Tab*) 1 tab PO Q4H PRN PRN Reason: PAIN Last Admin: 03/18/17 09:38 Dose: 1 tab Pharmacy Consult (Zosyn Per Pharmacy*) 1 note FOLLOW UP .ZOSYN PER PHARMACY [facility] Phenol/Menthol (Chloroseptic Throat Welch*) 5 spray MT TID PRN PRN Reason: SORE THROAT Last Admin: 03/18/17 05:32 Dose: 3 spray Vital Signs 03/17/17 03/17/17 03/17/17 17:27 17:29 20:20 Temperature 99.6 F 99.6 F 100.0 F Pulse Rate 83 83 82 Respiratory 18 18 Rate Blood Pressure 116/74 116/74 129/85 (mmHg) O2 Sat by Pulse 100 100 100 Oximetry 03/17/17 03/17/17 03/17/17 21:00 21:21 22:35 Temperature 100.6 F 98.9 F Pulse Rate Respiratory 18 Rate Blood Pressure (mmHg) O2 Sat by Pulse Oximetry 03/18/17 03/18/17 03/18/17 00:45 04:37 07:51 Temperature 98.7 F 99.5 F 99.8 F Pulse Rate 62 56 73 Respiratory 18 20 14 Rate Blood Pressure 110/71 111/69 113/66 (mmHg) O2 Sat by Pulse 100 99 100 Oximetry 03/18/17 03/18/17 07:56 09:38 Temperature Pulse Rate Respiratory 18 18 Rate Blood Pressure (mmHg) O2 Sat by Pulse Oximetry Oxygen Devices in Use Now: None Appearance: Alert, sitting up in bed. In good spirits. Looks comfortable. Eyes: No Scleral Icterus Ears/Nose/Mouth/Throat: Mucous Membranes Moist, - - white exudate both tonsils, tonsils mildly enlarged Neck: NL Appearance and Movements; NL JVP, No Thyroid Enlargement, Masses Respiratory: Symmetrical Chest Expansion and Respiratory Effort, Clear to Auscultation, Clear to Percussion Cardiovascular: NL Sounds; No Murmurs; No JVD, RRR, No Edema, - Extremities: No Edema, No Clubbing, Cyanosis, - Skin: No Rash or Ulcers, No Nodules or Sclerosis, - Neurological: Alert and Oriented x 3, NL Sensation Result Diagrams: 03/18/17 08:52 03/18/17 08:52 Additional Lab and Data: Lab Results 03/17/17 03/17/17 03/17/17 Range/Units 14:10 14:10 14:10 WBC 7.4 (3.5-10.8) 10^3/ul RBC 4.02 (4.0-5.4) 10^6/ul Hgb 12.2 (12.0-16.0) g/dl Hct 36 (35-47) % MCV 89 (80-97) fL MCH 30 (27-31) pg MCHC 34 (31-36) g/dl RDW 13 (10.5-15) % Plt Count 185 (150-450) 10^3/ul MPV 8 (7.4-10.4) um3 Neut % (Auto) 85.8 H (38-83) % Lymph % (Auto) 7.8 L (25-47) % Daniels % (Auto) 6.1 (1-9) % Eos % (Auto) 0.1 (0-6) % Baso % (Auto) 0.2 (0-2) % Absolute Neuts (auto) 6.4 (1.5-7.7) 10^3/ul Absolute Lymphs (auto) 0.6 L (1.0-4.8) 10^3/ul Absolute Monos (auto) 0.5 (0-0.8) 10^3/ul Absolute Eos (auto) 0 (0-0.6) 10^3/ul Absolute Basos (auto) 0 (0-0.2) 10^3/ul Absolute Nucleated RBC 0 10^3/ul Nucleated RBC % 0 Sodium 139 (133-145) mmol/L Potassium 3.6 (3.5-5.0) mmol/L Chloride 103 (101-111) mmol/L Carbon Dioxide 29 (22-32) mmol/L Anion Gap 7 (2-11) mmol/L BUN 14 (6-24) mg/dL Creatinine 0.71 (0.51-0.95) mg/dL Est GFR ( Amer) 119.8 (>60) Est GFR (Non-Af Amer) 93.1 (>60) BUN/Creatinine Ratio 19.7 (8-20) Glucose 116 H (70-100) mg/dL Lactic Acid 0.8 (0.5-2.0) mmol/L Calcium 9.0 (8.6-10.3) mg/dL Total Bilirubin 0.30 (0.2-1.0) mg/dL AST 11 L (13-39) U/L ALT 9 (7-52) U/L Alkaline Phosphatase 38 (34-104) U/L C-Reactive Protein 67.79 H (< 5.00) mg/L Total Protein 6.8 (6.4-8.9) g/dL Albumin 3.7 (3.2-5.2) g/dL Globulin 3.1 (2-4) g/dL Albumin/Globulin Ratio 1.2 (1-3) Monoscreen Negative (Negative) Assess/Plan/Problems-Billing Assessment: - Patient Problems (1) Acute bacterial pharyngitis Current Visit: Yes Status: Acute Code(s): J02.8 - ACUTE PHARYNGITIS DUE TO OTHER SPECIFIED ORGANISMS; B96.89 - OTH BACTERIAL AGENTS THE CAUSE OF DISEASES [facility] SN[facility] Code(s): 802968939 Comment: Continue pip/declan, IV steroids. Consider discharge 03/19 if improved.
[2017-03-19] MEDS: Phenol 1.4% Spray* 177 ML BTL MT PRN (03:26)
[2017-03-19] MEDS: oxyCODONE/Acetamin 5/325 MG* TAB PO PRN (03:28)
[2017-03-19] MEDS: Piperacillin/Tazobac ADVAN(*) 3.375 GM in D5W 100 ML BAG* 100 ML IVPB SCH (06:22)
[2017-03-19] MEDS: Dexamethasone IV* 4 MG/ML 1 ML (4 MG) IV SLOW PU SCH (06:22)
[2017-03-19 06:44] VITALS: BP 122/76
--- NOTE | 2017-03-19 07:52 | PN ---
Subjective Date of Service: 03/19/17 Interval History: Somewhat better. Tolerating full liquid diet. No new c/o. Objective Active Medications: Acetaminophen (Tylenol Tab*) 650 mg PO Q4H PRN PRN Reason: PAIN/FEVER Dexamethasone Sodium Phosphate (Decadron Iv*) 6 mg IV SLOW PU Q6HR [facility] Last Admin: 03/19/17 06:22 Dose: 6 mg Piperacillin Sod/Tazobactam (Sod 3.375 gm/ Dextrose) 100 mls @ 25 mls/hr IVPB Q8H [facility] Last Admin: 03/19/17 06:22 Dose: 25 mls/hr Ondansetron HCl (Zofran Inj*) 4 mg IV Q6H PRN PRN Reason: NAUSEA Oxycodone/Acetaminophen (Percocet 5/325 Tab*) 1 tab PO Q4H PRN PRN Reason: PAIN Last Admin: 03/19/17 03:28 Dose: 1 tab Pharmacy Consult (Zosyn Per Pharmacy*) 1 note FOLLOW UP .ZOSYN PER PHARMACY [facility] Phenol/Menthol (Chloroseptic Throat Kathleen*) 5 spray MT TID PRN PRN Reason: SORE THROAT Last Admin: 03/19/17 03:26 Dose: 5 spray Vital Signs 03/18/17 03/18/17 03/18/17 07:51 07:56 09:38 Temperature 99.8 F Pulse Rate 73 Respiratory 14 18 18 Rate Blood Pressure 113/66 (mmHg) O2 Sat by Pulse 100 Oximetry 03/18/17 03/18/17 03/18/17 12:01 14:10 15:36 Temperature 99.3 F Pulse Rate 69 Respiratory 16 16 16 Rate Blood Pressure 120/77 (mmHg) O2 Sat by Pulse 100 Oximetry 03/18/17 03/18/17 03/18/17 15:40 18:48 20:00 Temperature 99.4 F Pulse Rate 83 Respiratory 16 18 16 Rate Blood Pressure 113/73 (mmHg) O2 Sat by Pulse 100 Oximetry 03/18/17 03/18/17 03/18/17 20:04 21:42 21:52 Temperature 99.9 F 100.0 F Pulse Rate 76 Respiratory 16 16 Rate Blood Pressure 120/75 (mmHg) O2 Sat by Pulse 100 Oximetry 03/18/17 03/19/17 03/19/17 23:47 00:55 03:28 Temperature 98.8 F Pulse Rate 70 Respiratory 22 16 18 Rate Blood Pressure 118/82 (mmHg) O2 Sat by Pulse Oximetry 03/19/17 03/19/17 03/19/17 03:36 05:29 05:30 Temperature 99.1 F Pulse Rate 62 Respiratory 20 18 Rate Blood Pressure 118/77 (mmHg) O2 Sat by Pulse 100 Oximetry 03/19/17 03/19/17 06:42 07:20 Temperature 97.9 F Pulse Rate 70 Respiratory 20 Rate Blood Pressure 122/76 (mmHg) O2 Sat by Pulse 100 99 Oximetry Oxygen Devices in Use Now: None Appearance: Alert, sitting up in bed. In good spirits. Looks comfortable. Eyes: No Scleral Icterus Ears/Nose/Mouth/Throat: NL Teeth, Lips, Gums, Mucous Membranes Moist, - - BL white tonsillar exudate R>L Extremities: No Edema, No Clubbing, Cyanosis, - Skin: No Rash or Ulcers, No Nodules or Sclerosis, - Neurological: Alert and Oriented x 3, NL Sensation Result Diagrams: 03/18/17 08:52 03/18/17 08:52 Additional Lab and Data: Lab Results 03/17/17 03/17/17 03/17/17 Range/Units 14:10 14:10 14:10 WBC 7.4 (3.5-10.8) 10^3/ul RBC 4.02 (4.0-5.4) 10^6/ul Hgb 12.2 (12.0-16.0) g/dl Hct 36 (35-47) % MCV 89 (80-97) fL MCH 30 (27-31) pg MCHC 34 (31-36) g/dl RDW 13 (10.5-15) % Plt Count 185 (150-450) 10^3/ul MPV 8 (7.4-10.4) um3 Neut % (Auto) 85.8 H (38-83) % Lymph % (Auto) 7.8 L (25-47) % [place] % (Auto) 6.1 (1-9) % Eos % (Auto) 0.1 (0-6) % Baso % (Auto) 0.2 (0-2) % Absolute Neuts (auto) 6.4 (1.5-7.7) 10^3/ul Absolute Lymphs (auto) 0.6 L (1.0-4.8) 10^3/ul Absolute Monos (auto) 0.5 (0-0.8) 10^3/ul Absolute Eos (auto) 0 (0-0.6) 10^3/ul Absolute Basos (auto) 0 (0-0.2) 10^3/ul Absolute Nucleated RBC 0 10^3/ul Nucleated RBC % 0 Sodium 139 (133-145) mmol/L Potassium 3.6 (3.5-5.0) mmol/L Chloride 103 (101-111) mmol/L Carbon Dioxide 29 (22-32) mmol/L Anion Gap 7 (2-11) mmol/L BUN 14 (6-24) mg/dL Creatinine 0.71 (0.51-0.95) mg/dL Est GFR ( Amer) 119.8 (>60) Est GFR (Non-Af Amer) 93.1 (>60) BUN/Creatinine Ratio 19.7 (8-20) Glucose 116 H (70-100) mg/dL Lactic Acid 0.8 (0.5-2.0) mmol/L Calcium 9.0 (8.6-10.3) mg/dL Total Bilirubin 0.30 (0.2-1.0) mg/dL AST 11 L (13-39) U/L ALT 9 (7-52) U/L Alkaline Phosphatase 38 (34-104) U/L C-Reactive Protein 67.79 H (< 5.00) mg/L Total Protein 6.8 (6.4-8.9) g/dL Albumin 3.7 (3.2-5.2) g/dL Globulin 3.1 (2-4) g/dL Albumin/Globulin Ratio 1.2 (1-3) Monoscreen Negative (Negative) Assess/Plan/Problems-Billing Assessment: - Patient Problems (1) Acute bacterial pharyngitis Current Visit: Yes Status: Acute Code(s): J02.8 - ACUTE PHARYNGITIS DUE TO OTHER SPECIFIED ORGANISMS; B96.89 - OTH BACTERIAL AGENTS THE CAUSE OF DISEASES CLASSD [facility] SNOMED Code(s): 767089427 Comment: Discharge 03/19, finish clinda 300 mg tid, take prednisone 40 mg daily x 3 days. Fup PCP within a week. Status and Disposition: Discharge now. Fup PCP within 1 week.
--- NOTE | 2017-03-19 08:02 | PN ---
"Progress Note - Progress Note Date of Service: 03/19/17 Note: Search Terms: deny de jesus, 1980 Search Date: 03/19/2017 08:01:57 AM The Drug Utilization Report below displays all of the controlled substance prescriptions, if any, that your patient has filled in the last twelve months. The information displayed on this report is compiled from pharmacy submissions to the Department, and accurately reflects the information as submitted by the pharmacies. This report was requested by: Bakari Sanchez | Reference #: [id number] Others' Prescriptions Patient Name: Deny De Jesus Date: 1980 Address: [address] [place] [address] Sex: Female Rx Written Rx Dispensed Drug Quantity Days Supply Prescriber Name 03/15/2017 03/15/2017 tramadol hcl 50 mg tablet 6 3 Zoey Carrasco Time spent on discharge 45 minutes."
--- NOTE | 2017-03-20 02:36 | DS ---
CC: Ivy Kolb DO, at [facility]. DISCHARGE SUMMARY: DATE OF ADMISSION: 03/17/17 DATE OF DISCHARGE: 03/19/17 HISTORY: This 37-year-old woman who was admitted with pharyngitis. She has been treated as an outpa tient with clindamycin and prednisone. She continued to have temperatures up to 102 degrees. She wa s admitted. She was seen by the performance consultant. She was given piperacillin-tazobactam and intraveno us dexamethasone. She improved significantly and was able to tolerate a full liquid diet. Her [facility] temperature was 100.6 on 03/17 and 100.0 on 03/18. It was 97.9 on the morning of discharge. She will complete her clindamycin prescription at home. She only took a few days of it. She will ta ke prednisone 40 mg daily for 3 days starting the day after discharge. She was given a prescription for 20 oxycodone/acetaminophen for pain control, which was quite adequat e in the hospital. FINAL DIAGNOSIS: Acute bacterial pharyngitis. DISCHARGE MEDICATIONS: 1. Clindamycin 300 mg t.i.d. 2. Prednisone 40 mg daily for 3 days. 3. Ibuprofen 600 mg every 8 hours p.r.n. [id number]/[facility] #: [id number]
[2017-03-20] MEDS ORDERED: predniSONE TAB* 20 MG PO SCH (09:00)
== END 2017-03-19 10:40 | disposition home or self-care (01) | DRG 113 ==
LOC: ED 13:05 → OBSVTOIN 16:21 → INTOOBSV 16:21 → MCHPEDS 16:21 → MED 03-19 06:30
PROVIDERS: ADMIT Internal Medicine; ATTEND Internal Medicine
DX: J02.8 Acute pharyngitis due to other specified organisms (principal); F41.9 Anxiety disorder, unspecified; G40.909 Epilepsy, unspecified, not intractable, without status epilepticus; G50.0 Trigeminal neuralgia; Z79.1 Long term (current) use of non-steroidal anti-inflammatories (NSAID); Z79.52 Long term (current) use of systemic steroids; Z79.899 Other long term (current) drug therapy; Z88.5 Allergy status to narcotic agent; Z88.8 Allergy status to other drugs, medicaments and biological substances; Z82.49 Family history of ischemic heart disease and other diseases of the circulatory system
CPT/HCPCS: 36415; 80048; 80053; 83605; 85025; 86140; 86308; 86663; 86703; 87040; 87070; 94760; A9270-GY; J1100; J2270; J2543; J2930

== ENCOUNTER → 2017-10-19 14:12 | Emergency (ER) | payer BC ==
[2017-10-19 15:04] LABS: ABS Basophils 0 10^3/ul (0-0.2); ABS Eosinophils 0.1 10^3/ul (0-0.6); ABS Lymphocytes 1.5 10^3/ul (1.0-4.8); ABS Monocytes 0.5 10^3/ul (0-0.8); ABS Neutrophils 4.6 10^3/ul (1.5-7.7); ABS Nucleated RBC 0 10^3/ul; Hematocrit 43 % (35-47); Hemoglobin 14.7 g/dl (12.0-16.0); Lymphocyte % 22.3 % (25-47); Mean Corpuscular HGB Conc 35 g/dl (31-36); Mean Corpuscular Hemoglobin 31 pg (27-31); Mean Corpuscular Volume 90 fL (80-97); Mean Platelet Volume 8.5 um3 (7.4-10.4); Nucleated Red Blood Cells % 0.1; Platelet Count 215 10^3/ul (150-450); Red Blood Count 4.71 10^6/ul (4.00-5.40); Red Cell Distribution Width 13 % (10.5-15); White Blood Count 6.8 10^3/ul (3.5-10.8)
[2017-10-19 15:18] LABS: Urine Appearance Clear; Urine Blood 1+ (Negative); Urine Color Straw; Urine Ketones Negative (Negative); Urine Protein Negative (Negative); Urine Specific Gravity 1.002 (1.010-1.030); Urine Urobilinogen Negative (Negative)
[2017-10-19 15:35] LABS: EGFR Non-African American 70.8 (>60)
[2017-10-19 17:00] VITALS: BP 103/74
--- NOTE | 2017-10-19 21:33 | ED ---
Arron Rodríguez Angela, scribed for Josef Khalil MD on 10/19/17 at 1506 . Psychiatric Complaint - HPI Summary HPI Summary: This pt is a 37 y/o female presenting to [facility] for SI thoughts and plan today. Pt reports she saw her PCP today and stated she wanted to drive into a tree. When asked how serious she was about hurting herself, she notes "more than I should've been" and further reports she did scare herself. Pt states her PCP has been treating her for anxiety but recently she states "I am up to the point where I am pretty depressed, I'm not in a good place." She reports recent stressors of work (works at a [employer]) and recent break up with boyfriend that left her in debt. Pt she was in a bad relationship with her now ex-boyfriend "mentally and financially" since May. Her ex-boyfriend was diagnosed with glioblastoma a couple of months ago, which affected his personality and made him make crazy decisions. As a result pt was left with a lot of bills to pay. She also states she had a prior bad relationship with her now ex- who cheated on her a lot. Pt had a gun and a plan to kill herself and her , but notes that luckily her friend tackled her and stopped her. Pt began seeing a therapist then and left her in December. Pt went to [place] recently for vacation and has been back for a couple of days now. She states she felt good while on vacation. She takes Lexapro and confirms she has been taking them on a regular basis. Denies any other PMHx. Pt does have 2 children. Denies drug, alcohol, or tobacco use. - History Of Current Complaint Chief Complaint: EDMentalHealth Time Seen by Provider: 10/19/17 14:44 Hx Obtained From: Patient Onset/Duration: Lasting Days, Still Present Timing: Days Severity Currently: Severe Character: Depressed, Anxious Aggravating Factor(s): Recent Stress Alleviating Factor(s): Nothing Associated Signs And Symptoms: Positive: Confused Related History: Positive For: Prior Psychiatric Issues Has Suicidal: Reports: Thoughts, With A Plan Has Homicidal: Denies: Thoughts, With A Plan - Allergies/Home Medications Allergies/Adverse Reactions: Allergies Allergy/AdvReac Type Severity Reaction Status Date / Time cephalexin [From Keflex] Allergy Hives Verified 10/19/17 14:40 codeine Allergy Hives Verified 10/19/17 14:40 Home Medications: Home Medications NK [No Home Medications Reported] 10/19/17 [History Confirmed 10/19/17] PMH/Surg Hx/FS Hx/Imm Hx Endocrine/Hematology History: Reports: Hx Anemia - in the past Denies: Hx Anticoagulant Therapy, Hx Blood Disorders, Hx Diabetes, Hx Thyroid Disease Cardiovascular History: Denies: Hx Hypertension, Hx Pacemaker/ICD Respiratory History: Denies: Hx Asthma GI History: Comment Only: Other GI Disorders - constipation History: Denies: Hx Renal Disease Musculoskeletal History: Reports: Hx Back Problems - herniated disc, Other Musculoskeletal History - TMJ Sensory History: Reports: Hx Contacts or Glasses Denies: Hx Hearing Aid, Hx Hearing Problem Opthamlomology History: Reports: Hx Contacts or Glasses Neurological History: Denies: Hx CVA, Hx Headaches, Hx Migraine, Hx Spinal Cord Injury Comment Only: Other Neuro Impairments/Disorders - neuralgia Psychiatric History: Reports: Hx Anxiety, Hx Depression Denies: Hx Panic Disorder - Surgical History Surgery Procedure, Year, and Place: D & C. Endoscopy upper Hx Anesthesia Reactions: No Infectious Disease History: No Infectious Disease History: Reports: Hx Shingles - Rib area Denies: Traveled Outside the [place] in Last 30 Days - Family History Family History: No FHx of Breast Cancer - Social History Alcohol Use: Occasionally Hx Substance Use: No Substance Use Type: Reports: None Hx Tobacco Use: No Smoking Status (MU): Never Smoked Tobacco Review of Systems Negative: Fever, Chills Cardiovascular: Negative Respiratory: Negative Gastrointestinal: Negative Genitourinary: Negative Psychological: Other - SI thoughts and plan Positive: Anxious, Depressed All Other Systems Reviewed And Are Negative: Yes Physical Exam - Summary Physical Exam Summary: Appearance: Well appearing, no pain distress Skin: warm, dry, reflects adequate perfusion Head/face: normal Eyes: EOMI, JR ENT: normal Neck: supple, non-tender Respiratory: CTA, breath sounds present Cardiovascular: RRR, pulses symmetrical Abdomen: non-tender, soft Bowel: present Musculoskeletal: normal, strength/ROM intact Neuro: normal, sensory motor intact, A&Ox3 Triage Information Reviewed: Yes Vital Signs On Initial Exam: Initial Vitals Temp Pulse Resp BP Pulse Ox 99.0 F 67 19 121/86 100 10/19/17 14:16 10/19/17 14:16 10/19/17 14:16 10/19/17 14:16 10/19/17 14:16 Vital Signs Reviewed: Yes Diagnostics - Vital Signs Vital Signs Temp Pulse Resp BP Pulse Ox 10/19/17 14:16 99.0 F 67 19 121/86 100 - Laboratory Lab Results: Lab Results 10/19/17 10/19/17 10/19/17 Range/Units 14:49 14:49 15:01 WBC 6.8 (3.5-10.8) 10^3/ul RBC 4.71 (4.00-5.40) 10^6/ul Hgb 14.7 (12.0-16.0) g/dl Hct 43 (35-47) % MCV 90 (80-97) fL MCH 31 (27-31) pg MCHC 35 (31-36) g/dl RDW 13 (10.5-15) % Plt Count 215 (150-450) 10^3/ul MPV 8.5 (7.4-10.4) um3 Neut % (Auto) 67.8 (38-83) % Lymph % (Auto) 22.3 L (25-47) % [place] % (Auto) 7.2 H (0-7) % Eos % (Auto) 2.0 (0-6) % Baso % (Auto) 0.7 (0-2) % Absolute Neuts (auto) 4.6 (1.5-7.7) 10^3/ul Absolute Lymphs (auto) 1.5 (1.0-4.8) 10^3/ul Absolute Monos (auto) 0.5 (0-0.8) 10^3/ul Absolute Eos (auto) 0.1 (0-0.6) 10^3/ul Absolute Basos (auto) 0 (0-0.2) 10^3/ul Absolute Nucleated RBC 0 10^3/ul Nucleated RBC % 0.1 Sodium 140 (135-145) mmol/L Potassium 3.6 (3.5-5.0) mmol/L Chloride 104 (101-111) mmol/L Carbon Dioxide 27 (22-32) mmol/L Anion Gap 9 (2-11) mmol/L BUN 9 (6-24) mg/dL Creatinine 0.90 (0.51-0.95) mg/dL Est GFR ( Amer) 85.7 (>60) Est GFR (Non-Af Amer) 70.8 (>60) BUN/Creatinine Ratio 10.0 (8-20) Glucose 83 (70-100) mg/dL Calcium 9.3 (8.6-10.3) mg/dL Total Bilirubin 0.60 (0.2-1.0) mg/dL AST 12 L (13-39) U/L ALT 10 (7-52) U/L Alkaline Phosphatase 41 (34-104) U/L Total Protein 7.2 (6.4-8.9) g/dL Albumin 4.5 (3.2-5.2) g/dL Globulin 2.7 (2-4) g/dL Albumin/Globulin Ratio 1.7 (1-3) TSH 1.59 (0.34-5.60) mcIU/mL Beta HCG, Quant < 0.60 mIU/mL Urine Color Straw Urine Appearance Clear Urine pH 7.0 (5-9) Ur Specific [place] 1.002 L (1.010-1.030) Urine Protein Negative (Negative) Urine Ketones Negative (Negative) Urine Blood 1+ A (Negative) Urine Nitrate Negative (Negative) Urine Bilirubin Negative (Negative) Urine Urobilinogen Negative (Negative) Ur Leukocyte Esterase Trace A (Negative) Urine WBC (Auto) Trace(0-5/hpf) (Absent) Urine RBC (Auto) Absent (Absent) Ur Squamous Epith Cells Present A (Absent) Urine Bacteria Absent (Absent) Urine Glucose Negative (Negative) Salicylates < 2.50 (<30) mg/dL Urine Opiates Screen (None Detect) Acetaminophen < 15 mcg/mL Ur Barbiturates Screen (None Detect) Ur Phencyclidine Scrn (None Detect) Ur Amphetamines Screen (None Detect) U Benzodiazepines Scrn (None Detect) Urine Cocaine Screen (None Detect) U Cannabinoids Screen (None Detect) Serum Alcohol < 10 (<10) mg/dL 10/19/17 Range/Units 15:02 WBC (3.5-10.8) 10^3/ul RBC (4.00-5.40) 10^6/ul Hgb (12.0-16.0) g/dl Hct (35-47) % MCV (80-97) fL MCH (27-31) pg MCHC (31-36) g/dl RDW (10.5-15) % Plt Count (150-450) 10^3/ul MPV (7.4-10.4) um3 Neut % (Auto) (38-83) % Lymph % (Auto) (25-47) % [place] % (Auto) (0-7) % Eos % (Auto) (0-6) % Baso % (Auto) (0-2) % Absolute Neuts (auto) (1.5-7.7) 10^3/ul Absolute Lymphs (auto) (1.0-4.8) 10^3/ul Absolute Monos (auto) (0-0.8) 10^3/ul Absolute Eos (auto) (0-0.6) 10^3/ul Absolute Basos (auto) (0-0.2) 10^3/ul Absolute Nucleated RBC 10^3/ul Nucleated RBC % Sodium (135-145) mmol/L Potassium (3.5-5.0) mmol/L Chloride (101-111) mmol/L Carbon Dioxide (22-32) mmol/L Anion Gap (2-11) mmol/L BUN (6-24) mg/dL Creatinine (0.51-0.95) mg/dL Est GFR ( Amer) (>60) Est GFR (Non-Af Amer) (>60) BUN/Creatinine Ratio (8-20) Glucose (70-100) mg/dL Calcium (8.6-10.3) mg/dL Total Bilirubin (0.2-1.0) mg/dL AST (13-39) U/L ALT (7-52) U/L Alkaline Phosphatase (34-104) U/L Total Protein (6.4-8.9) g/dL Albumin (3.2-5.2) g/dL Globulin (2-4) g/dL Albumin/Globulin Ratio (1-3) TSH (0.34-5.60) mcIU/mL Beta HCG, Quant mIU/mL Urine Color Urine Appearance Urine pH (5-9) Ur Specific [place] (1.010-1.030) Urine Protein (Negative) Urine Ketones (Negative) Urine Blood (Negative) Urine Nitrate (Negative) Urine Bilirubin (Negative) Urine Urobilinogen (Negative) Ur Leukocyte Esterase (Negative) Urine WBC (Auto) (Absent) Urine RBC (Auto) (Absent) Ur Squamous Epith Cells (Absent) Urine Bacteria (Absent) Urine Glucose (Negative) Salicylates (<30) mg/dL Urine Opiates Screen None detected (None Detect) Acetaminophen mcg/mL Ur Barbiturates Screen None detected (None Detect) Ur Phencyclidine Scrn None detected (None Detect) Ur Amphetamines Screen None detected (None Detect) U Benzodiazepines Scrn None detected (None Detect) Urine Cocaine Screen None detected (None Detect) U Cannabinoids Screen None detected (None Detect) Serum Alcohol (<10) mg/dL Result Diagrams: 10/19/17 14:49 10/19/17 14:49 Lab Statement: Any lab studies that have been ordered have been reviewed, and results considered in the medical decision making process. - EKG 14:42 Cardiac Rate: NL - at 67 bpm EKG Rhythm: Sinus Rhythm ST Segment: Normal EKG Interpretation: Normal axis and intervals. Course/Dx - Course Assessment/Plan: Pt was medically cleared. The pt had a mental health evaluation and her case was reviewed by the psychiatrist. After their evaluation , they report the pt can be discharged home with outpatient follow up at [facility] with a diagnosis of major depression. - Differential Dx/Clinical Impression Provider Diagnosis: Major depression Discharge - Sign-Out/Discharge Documenting (check all that apply): Discharge/Admit/Transfer - Discharge - Discharge Plan Condition: Stable Disposition: HOME Patient Education Materials: Depression (ED), Anxiety (ED) Referrals: [facility] [Outside] (Please follow up with [facility] as soon as possible) Ivy Kolb DO [Primary Care Provider] - - Billing Disposition and Condition Condition: STABLE Disposition: Home The documentation as recorded by the Arron abad Angela accurately reflects the service I personally performed and the decisions made by me, Josef Khalil MD.
== END | disposition home or self-care (01) ==
LOC: ED 14:12
DX: F32.9 Major depressive disorder, single episode, unspecified (principal); F41.8 Other specified anxiety disorders
CPT/HCPCS: 36415; 80053; 80307; 80320; 80329; 81003; 81015; 84443; 84702; 85025; 87086; 93005; 99285; G0480

== ENCOUNTER → 2018-09-30 07:52 | Day surgery (SDC) | payer OTHER ==
[~2018-09-30 07:52] MED LIST: Acetic Acid 0.25%* 250 ML BTL ONE; Buffered Lidocaine 1% SYRIN* 1 ML/SYRINGE INTRADERM ONE; Ferric Subsulfate* 1 dose = 10 mL Solution TOPICAL ONE; Ibuprofen TAB* 200 MG ONE; Ibuprofen TAB* 600 MG PO PRN; Iodine Strong (LUGOL'S)* 14 ML BTL ONE; Lactated Ringers 1000 ML Bag* 1,000 ML IV SCH; Lidocaine 1% INJ* 10 MG/ML 30 ML SDV ONE; Midazolam* 1 MG/ML 5 ML VIAL (5 MG) ONE; Naloxone* 0.4 MG/ML 1 ML VIAL IV PRN; Ondansetron INJ* 2 MG/ML VIAL ONE; fentaNYL* 50 MCG/ML 2 ML VIAL (100 MCG VIAL) ONE; oxyCODONE/Acetamin 5/325 MG* TAB PO PRN
[2018-09-30 08:42] LABS: Hematocrit 40 % (35-47); Hemoglobin 13.6 g/dL (12.0-16.0); Mean Corpuscular HGB Conc 34 g/dL (31-36); Mean Corpuscular Hemoglobin 30 pg (27-31); Mean Corpuscular Volume 90 fL (80-97); Mean Platelet Volume 8.6 fL (7.4-10.4); Platelet Count 184 10^3/uL (150-450); Red Cell Distribution Width 14 % (10-15); White Blood Count 5.5 10^3/uL (3.5-10.8)
[2018-09-30 12:21] VITALS: BP 118/81
--- NOTE | 2018-09-30 20:50 | OP ---
OPERATIVE REPORT: DATE OF OPERATION: 09/30/18 DATE OF : 82 SURGEON: Alexandra Amaro MD ANESTHESIOLOGIST: Dr. Perdue. ANESTHESIA: Sedation with local. PRE-OP DIAGNOSES: 1. Moderate cervical dysplasia on colposcopy, biopsy at [facility]. 2. Mirena IUD. POST-OP DIAGNOSES: 1. Moderate cervical dysplasia on colposcopy, biopsy at [facility]. 2. Mirena IUD. OPERATIVE PROCEDURE: Colposcopy, cervical cone biopsy, endocervical curettage, removal of Mirena and insert new Mirena. FINDINGS: Midline cervix with acetowhite changes at 2 o'clock and nonstaining of the Lugol solution at 2 o'clock. Uterus sounded to 7 after the cone biopsy. COMPLICATIONS: None. COUNTS: Sponge, lap, and needle count were correct x2. CONDITION: The patient was brought to the recovery room awake and in stable condition. DESCRIPTION OF PROCEDURE: The patient was brought to the operating room. When anesthesia was found to be adequate, a time-out was performed. The patient was draped in the lithotomy position. No prep was used as a colposcopy was going to be performed. Colposcopy was then performed with the above fi ndings noted. A Mcguire cone biopsy was then performed using size large. This specimen was sent to Pathology with the cut at 12 o'clock. This specimen was removed in one piece. Endocervical curettage was then performed and that specimen was sent to Pathology. Prior to performing the colposcopy, the IUD had been removed and found to be intact and then discarded. After the biopsy, the cervix was pre pped with Betadine. The uterus sounded to 7 and a Mirena IUD was inserted without difficulty. The s trings were cut to between 3 and 4 cm. Excellent hemostasis was achieved on the cervix using Monsel' s solution and the roller-ball cautery. All instruments were removed from the vagina and the patient was brought to the recovery room awake and in stable condition. The colposcopy and biopsy were perf ormed using the coated speculum. [id number]/[facility] #: [id number]
== END | disposition home or self-care (01) ==
LOC: OR 07:52
PROVIDERS: ATTEND Obstetrics & Gynecology
DX: N87.0 Mild cervical dysplasia (principal); Z30.433 Encounter for removal and reinsertion of intrauterine contraceptive device; Z87.891 Personal history of nicotine dependence; F41.9 Anxiety disorder, unspecified
CPT/HCPCS: 36415; 81025; 85027; 86850; 86900; 86901; 88305; 88307; A9270-GY; J2250; J2405; J3010; J7300